=== PATIENT | female | born 1970 | race Two or more races ===

== ENCOUNTER → 2020-02-14 15:59 | Outpatient (CLI) | payer OTHER ==
[~2020-02-14 15:59] MED LIST: SYNTHROID50 MCG
== END | disposition home or self-care (01) ==
LOC: LAB 15:59
PROVIDERS: ATTEND Urology
DX: N30.00 Acute cystitis without hematuria (principal); B96.29 Other Escherichia coli [E. coli] as the cause of diseases classified elsewhere

== ENCOUNTER 2020-03-09 10:11 | Emergency (ER) | payer OTHER ==
[~2020-03-09] VITALS: Ht 157.5 cm; Wt 63.0 kg
[2020-03-09] MEDS ORDERED: CLONAZEPAM0.5 MG (10:57)
[2020-03-09] MEDS ORDERED: PROZAC40 MG (10:57)
[2020-03-09] MEDS ORDERED: CIPRO500 MG PO (13:19)
== END 2020-03-09 13:40 | disposition home or self-care (01) ==
LOC: ER 10:11
DX: R53.81 Other malaise (principal); R30.0 Dysuria; R50.9 Fever, unspecified

== ENCOUNTER 2021-04-21 10:08 | Emergency (ER) | payer OTHER ==
[~2021-04-21] VITALS: Ht 157.5 cm; Wt 63.5 kg
[~2021-04-21 10:08] MED LIST changes: +CIPRO500 MG PO; +CLONAZEPAM0.5 MG; +PROZAC40 MG
[2021-04-21] MEDS ORDERED: SYNTHROID88 MCG PO (10:22)
[2021-04-21] MEDS ORDERED: SYNTHROID100 MCG PO (10:24)
[2021-04-23] MEDS ORDERED: PROTONIX40 MG PO (13:20)
== END 2021-04-21 20:20 | disposition home or self-care (01) ==
LOC: ER 10:08
DX: N39.0 Urinary tract infection, site not specified (principal); K29.60 Other gastritis without bleeding; N20.2 Calculus of kidney with calculus of ureter

== ENCOUNTER → 2021-04-23 | Outpatient (CLI) | payer OTHER ==
[~2021-04-23] MED LIST changes: +PROTONIX40 MG PO; +SYNTHROID100 MCG PO; +SYNTHROID88 MCG PO
== END | disposition home or self-care (01) ==
LOC: RAD 09:34
PROVIDERS: ATTEND Urology
DX: R07.89 Other chest pain (principal); Z01.811 Encounter for preprocedural respiratory examination

== ENCOUNTER 2021-04-24 09:52 | Day surgery (SDC) | payer OTHER | END 2021-04-24 16:45 | disposition home or self-care (01) | LOC: CIR.AMB 09:52 | PROVIDERS: ATTEND Urology | DX: N20.1 Calculus of ureter (principal); Z20.822 Contact with and (suspected) exposure to COVID-19 ==